=== PATIENT | female | born 1995 | race Caucasian/White ===

== ENCOUNTER 2017-09-19 22:36 | Emergency (ER) | payer OTHER ==
[~2017-09-19] VITALS: Ht 165.1 cm; Wt 90.3 kg
[2017-09-19 22:38] VITALS: BP 153/89
--- NOTE | 2017-09-19 23:50 | NUR ---
PATIENT LEFT WITHOUT BEING SEEN BY DR. CALVO. NO FURTHER CARE PROVIDED FOR PATIENT.
== END 2017-09-19 23:50 | disposition left against medical advice (07) ==
LOC: EDBD 22:36 → MED 22:36
DX: F41.9 Anxiety disorder, unspecified (principal); R07.89 Other chest pain; Z53.21 Procedure and treatment not carried out due to patient leaving prior to being seen by health care provider

== ENCOUNTER 2019-03-30 01:14 | Emergency (ER) | payer OTHER ==
[~2019-03-30] VITALS: Ht 167.6 cm; Wt 93.9 kg
--- NOTE | 2019-03-30 01:20 | NUR ---
PT TAKEN TO BED 7
[2019-03-30 01:26] VITALS: BP 109/68
[2019-03-30] MEDS ORDERED: ALBUTEROL SULFATE/IPRATROPIU 3 ML SOL IH ONE ×2 (01:30→01:50)
[2019-03-30] MEDS ORDERED: methylPREDNISolone SS 125 MG/2 ML VIAL IM ONE (01:30)
--- NOTE | 2019-03-30 01:39 | NUR ---
Respiratory Therapist at bedside for respiratory intervention.
--- NOTE | 2019-03-30 01:49 | NUR ---
PT TO ED WITH C/O ASTHMA EXACERBATION X 30MINS PRIOR TO ARRIVAL. WHEEZES NOTED TO BILATERAL LOBES. CHEST RISE IS EQUAL. PT IS TACHYPNIC. ER MD AND RT AT BEDSIDE FOR INTERVENTION.
--- NOTE | 2019-03-30 02:05 | NUR ---
LUNG SOUNDS IMPROVING AFTER 2ND BREATHING TX. PT REPORTS RELIEF OF SYMPTOMS.
[2019-03-30 02:11] VITALS: BP 109/68
--- NOTE | 2019-03-30 02:11 | NUR ---
Patient discharged with v/s stable. Written and verbal after care instructions given and explained. Patient alert, oriented and verbalized understanding of instructions. Ambulatory with steady gait. All questions addressed prior to discharge. ID band removed. Patient advised to follow up with PMD. Rx of PREDNISONE, ALBUTEROL given. Patient educated on indication of medication including possible reaction and side effects. Opportunity to ask questions provided and answered.
== END 2019-03-30 02:11 | disposition home or self-care (01) ==
LOC: MED 01:14
DX: J45.901 Unspecified asthma with (acute) exacerbation (principal)
CPT/HCPCS: 94640; 96372; 99284; J2930; J7620

== ENCOUNTER 2020-05-30 06:30 | Emergency (ER) | payer OTHER, SELFPAY ==
[~2020-05-30] VITALS: Ht 162.6 cm; Wt 90.7 kg
[2020-05-30 06:37] VITALS: BP 140/101
[2020-05-30] MEDS ORDERED: ALBUTEROL SULFATE/IPRATROPIU 3 ML SOL IH ONE (06:40)
[2020-05-30] MEDS ORDERED: predniSONE 20 MG TAB PO ONE (06:40)
--- NOTE | 2020-05-30 06:44 | NUR ---
25 Y/O F PRESENTS TO ED C/O SOB SINCE LAST NIGHT. PT HAS ASTHMA AND USES AN INHALER, PER PT, INHALER HASN'T BEEN HELPFUL. WHEEZING AND COUGH PRESENT. DENIES N/V/D. O2 SAT 97% RA. RR EVEN AND UNLABORED. BED IN LOWEST POSITION, SIDE RAIL UP X1. WILL CONTINUE TO MONITOR. MHX: ASTHMA NKA
[2020-05-30] MEDS ORDERED: ALBUTEROL HFA MDI 90 MCG/ACTUATION 8 GM INH ONE (06:55)
--- NOTE | 2020-05-30 07:05 | NUR ---
COVID SWAB OBTAINED AND WALKED OVER TO LAB.
--- NOTE | 2020-05-30 07:10 | NUR ---
Radha moe in [facility] - 05/30/20 at [address] [facility] [address] FRY AT [facility].
--- NOTE | 2020-05-30 07:21 | NUR ---
Pt report received from SUMAYA LYNN. Transfer of care at this time.
[2020-05-30 08:12] VITALS: BP 123/91
== END 2020-05-30 08:12 | disposition home or self-care (01) ==
LOC: MED 06:30 → EEVIPCON 06:30 → MED 08:12
DX: J45.901 Unspecified asthma with (acute) exacerbation (principal)
CPT/HCPCS: 71045; 94664; 99284; J7512; Q0092; U0003

== ENCOUNTER 2021-12-25 12:42 | Emergency (ER) | payer OTHER, SELFPAY ==
[~2021-12-25] VITALS: Ht 162.6 cm; Wt 93.0 kg
--- NOTE | 2021-12-25 13:49 | NUR ---
pt states she is having sob, o2 saturation 97% lungs clear bl, pt was sent back to lobby at this time
[2021-12-25 13:57] VITALS: BP 138/76
--- NOTE | 2021-12-25 14:02 | NUR ---
novel swabbed and asked to wait in tent for symptoms at this time
[2021-12-25] MEDS ORDERED: methylPREDNISolone SS 125 MG in WATER STERILE 2 ML IM ONE (14:10)
[2021-12-25] MEDS ORDERED: ALBUTEROL SULFATE/IPRATROPIU 3 ML SOL IH ONE (14:10)
--- NOTE | 2021-12-25 14:50 | NUR ---
[facility] GIVEN ENCOURAGED PATIENT FOR INTERMITTENT DEEP BREATHING DURING THERAPY
[2021-12-25] MEDS ORDERED: PRED20TA5 PO (15:20)
[2021-12-25] MEDS ORDERED: MONT10TA35 PO (15:20)
--- NOTE | 2021-12-25 15:36 | NUR ---
pt name was called outside and in lobby. left without paperwork.
== END 2021-12-25 15:36 | disposition home or self-care (01) ==
LOC: MED 12:42
DX: J45.901 Unspecified asthma with (acute) exacerbation (principal); Z79.899 Other long term (current) drug therapy
CPT/HCPCS: 71045; 94640; 99283